=== PATIENT | male | born 1995 | race Caucasian/White ===

== ENCOUNTER 2017-02-28 22:41 | Emergency (ER) | payer OTHER ==
[~2017-02-28] VITALS: Ht 167.6 cm; Wt 72.6 kg
[~2017-02-28 22:41] MED LIST: CLON2TAB PO; TEMA30CA5 PO
[2017-02-28] MEDS ORDERED: VANCOMYCIN IV 1,000 MG in IV DEXTROSE 5% 250 ML IV ONE (23:00)
[2017-02-28] MEDS ORDERED: HYDROMORPHONE 1 MG/1 ML DISP.SYRIN IV ONE (23:00)
[2017-02-28] MEDS ORDERED: PIPERACILLIN SODIUM/TAZOBACTAM 3.375 G in IV DEXTROSE 5% 50 ML IV ONE (23:00)
[2017-02-28] MEDS ORDERED: IV NORMAL SALINE 1000 ML BAG IV ONE (23:00)
[2017-02-28] MEDS ORDERED: ONDANSETRON 4 MG/2 ML VIAL IV ONE (23:00)
[2017-02-28] MEDS ORDERED: HYDROMORPHONE 2 MG/1 ML DISP.SYRIN ONE (23:22)
[2017-02-28] MEDS ORDERED: ONDANSETRON 4 MG/2 ML VIAL ONE (23:23)
--- NOTE | 2017-02-28 23:23 | NUR ---
Pt biba for redness, swelling and pain to L wrist s/p self injection of crushed medication. Pt placed on monitor ST. Pt admits to using heroin earlier today. Pt seen by MD. ANGELLA huntley, pt medicated for discomfort, will monitor for effects of medication. Lab at bedside for draw.
--- NOTE | 2017-02-28 23:25 | NUR ---
CALLED [facility] [phone] SPOKE WITH ALEXUS.ONLY BEDAS AVAILABLE ARE OB AND PEDS.
[2017-02-28] MEDS ORDERED: PIPERACILLIN/TAZOBACTAM/D5W 50 ML IV ONE (23:27)
--- NOTE | 2017-02-28 23:30 | NUR ---
CALLED [facility] [phone] WITH МАРИНА IN ER NO ORTHO HAND SURGEON AVAILABLE
--- NOTE | 2017-02-28 23:40 | NUR ---
ABT infusion started, will monitor for any adverse reactions.
--- NOTE | 2017-02-28 23:50 | NUR ---
CALLED [facility] [phone] SPOKE WITH ER CHARGE NURSE NEAL.SHE TO SPEAK TO ER DR AND CALL BACK
[2017-02-28 23:54] LABS: BASOPHILS # (AUTO) 0.1 K/uL (0.0-8.0); BASOPHILS % (AUTO) 0.8 % (0.0-2.0); EOSINOPHILS % (AUTO) 0.1 % (0.0-7.0); HEMATOCRIT 41.2 % (40-50); HEMOGLOBIN 13.9 G/DL (14.0-18.0); LYMPHOCYTES # (AUTO) 2.4 K/UL (0.8-4.8); LYMPHOCYTES % (AUTO) 16.8 % (20.5-51.5); MEAN CORPUSCULAR HEMOGLOBIN 29.3 UUG (27.0-31.0); MEAN CORPUSCULAR HGB CONC 34 g/dL (32.0-37.0); MEAN CORPUSCULAR VOLUME 86.9 FL (82.0-92.0); NEUTROPHILS # (AUTO) 10.7 K/UL (1.8-8.9); NEUTROPHILS % (AUTO) 75.3 % (38.5-71.5); PLATELET COUNT (AUTO) 336 K/UL (150-450); RED BLOOD CELL COUNT(AUTO) 4.74 MIL/UL (4.7-6.1); WHITE BLOOD COUNT (AUTO) 14.2 K/UL (4.0-11.2)
[2017-03-01 00:09] LABS: BILIRUBIN,DIRECT 0.1 mg/dL (0.0-0.2); BILIRUBIN,TOTAL 0.3 mg/dL (0.2-1.0); CREATININE 1.1 mg/dL (0.6-1.3); POTASSIUM 3.5 mmol/L (3.5-5.1); TOTAL PROTEIN, SERUM 8.5 g/dL (6.4-8.2)
--- NOTE | 2017-03-01 00:10 | NUR ---
NEAL,CHARGE NURSE FROM [facility] CALLED.WE TO FAX ALL INFO TO [facility](TRANSFER PERSON).THEY WILL NOTIFY US OF DECISION.
[2017-03-01 00:15] LABS: ETHANOL < 3 MG/DL (0-0)
[2017-03-01 00:20] LABS: *AMPHETAMINE, URINE POSITIVE (NEGATIVE); *BARBITURATE, URINE NEGATIVE (NEGATIVE); *CANNABINOID, URINE NEGATIVE (NEGATIVE); *COCCAINE, URINE NEGATIVE (NEGATIVE); *OPIATE, URINE POSITIVE (NEGATIVE); *PHENCYCLIDINE SCREEN,URINE NEGATIVE (NEGATIVE)
[2017-03-01] MEDS ORDERED: VANCOMYCIN IV 200 ML ONE (00:36)
--- NOTE | 2017-03-01 00:45 | NUR ---
ALL INFO FAXED TO [facility]
--- NOTE | 2017-03-01 01:30 | NUR ---
PATIENT DEVELOPE REDNESS ON CHEST AREA AND LOWER EXTERMITY AFTER VANCO WAS INFUSED. DR CARABALLO MADE AWARE AND ORDERS RECIEVED AND CARRIED OUT
[2017-03-01] MEDS ORDERED: diphenhydrAMINE 50 MG/1 ML VIAL IV ONE ×2 (01:45→02:15)
[2017-03-01] MEDS ORDERED: diphenhydrAMINE 50 MG/1 ML VIAL ONE ×2 (02:09→02:28)
[2017-03-01] MEDS ORDERED: HYDROMORPHONE 1 MG/1 ML DISP.SYRIN IV ONE (03:30)
--- NOTE | 2017-03-01 03:41 | NUR ---
Called for possible transfer to [facility] and they are at capacity. Called [facility] and they dont have hand speciality.
--- NOTE | 2017-03-01 03:51 | NUR ---
Pt medicated for continued pain, will monitor for effects of medicaiton. Pt resting in position of comfort for self. Called [facility], awaiting call back.
[2017-03-01] MEDS ORDERED: HYDROMORPHONE 2 MG/1 ML DISP.SYRIN ONE (03:56)
--- NOTE | 2017-03-01 04:19 | NUR ---
[facility] unable to accept pt at this time
[2017-03-01] MEDS ORDERED: OLANZAPINE 5 MG TABLET PO ONE (05:15)
[2017-03-01] MEDS ORDERED: PIPERACILLIN SODIUM/TAZOBACTAM 3.375 G in IV DEXTROSE 5% 50 ML IV ONE (05:15)
--- NOTE | 2017-03-01 05:25 | NUR ---
Called [facility], awaiting call back.
--- NOTE | 2017-03-01 05:30 | NUR ---
Dr. Noel speaking with Dr. Cuenca hand specialist for possible transfer to [facility]
[2017-03-01] MEDS ORDERED: PIPERACILLIN/TAZOBACTAM/D5W 50 ML IV ONE (05:42)
[2017-03-01] MEDS ORDERED: OLANZAPINE 5 MG TABLET ONE (05:42)
--- NOTE | 2017-03-01 05:58 | NUR ---
Pt accepted by Dr. Treviño with Dr. Cuenca for hand specialist consult. Pt to be transferred to [facility] ER. Report to be called to [phone]
--- NOTE | 2017-03-01 05:59 | NUR ---
Initial IV infiltrated. IV dc'd, catheter intact. drsg applied. New IV established, 20g L AC. ABT infusion started, will monitor for any adverse reactions. Pt refused zyprexa. Dr. Noel notified.
--- NOTE | 2017-03-01 07:09 | NUR ---
[facility] transport at bedside. Report called to [facility] spoke with JEFFY Burk.
== END 2017-03-01 07:26 | disposition short-term general hospital (02) ==
LOC: ER 22:41
DX: L03.114 Cellulitis of left upper limb (principal); F15.129 Other stimulant abuse with intoxication, unspecified; F32.9 Major depressive disorder, single episode, unspecified; F41.9 Anxiety disorder, unspecified; F17.200 Nicotine dependence, unspecified, uncomplicated
CPT/HCPCS: 36415; 73130; 80048; 80076; 80307; 83605; 83880; 84484; 85025; 85730; 87040 ×2; 93005; 96365 ×2; 96367; 96375; 96376; 99285; A4663; G0480; J1170 ×2; J1200 ×2; J2405; J2543 ×2; J3370; J7030; 70030-TC

== ENCOUNTER 2017-09-08 18:42 | Inpatient (IN) | payer OTHER ==
[~2017-09-08] VITALS: Ht 170.2 cm; Wt 63.5 kg
[2017-09-08] VITALS: BP 133/87
[2017-09-08] MEDS ORDERED: TEMA30CA PO (19:40)
[2017-09-08] MEDS ORDERED: ONDANSETRON 4 MG/2 ML VIAL IM PRN (19:45)
[2017-09-08] MEDS ORDERED: DICYCLOMINE HCL 20 MG TABLET PO PRN (19:45)
[2017-09-08] MEDS ORDERED: DIAZEPAM 10 MG TABLET PO PRN (19:45)
[2017-09-08] MEDS ORDERED: MIRALAX 17 GM POWD.PACK PO PRN (19:45)
[2017-09-08] MEDS ORDERED: LOPERAMIDE HCL 2 MG CAPSULE PO PRN ×2 (19:45)
[2017-09-08] MEDS ORDERED: MAGNESIUM HYDROXIDE 30 ML LIQUID UDC PO PRN (19:45)
[2017-09-08] MEDS ORDERED: DIAZEPAM 5 MG TABLET PO PRN (19:45)
[2017-09-08] MEDS ORDERED: LORAZEPAM 2 MG/1 ML VIAL IM PRN (19:45)
[2017-09-08 20:00] VITALS: BP 112/67
--- NOTE | 2017-09-08 20:15 | NUR ---
ADMISSION NOTE CIWA: 13, COWS:12 Pt arrived ambulatory from [facility] to the third floor accompanied by a BUCKRAM SEWER at 1925. Pt is a 22 year old male admitted on 09/08/17 for Benzodiazepine and Opiate withdrawal. Pt is full code with NKA. Pt reports PMHx of anxiety, depression,insomnia, HTN, seizure ( 1 year ago), dystonia (1 week ago) and inhalant induced frontal lobe brain injury at 14 years old. He denies having a PCP. He reports he has been to detox before but is unable to recall when and where. His longest sobriety was for 1 year in 2014. He reports taking home medications of Clonidine 0.3 mg TID, Adderall 30 mg, Klonopin 30 mg, Temazepam 30 mg, and Ambien of unknown dose. Medications have been reconciled. He describes his current use as: 1. Klonopin 90 mg PO daily for 3 months. Last dose: 90 mg on 09/07/17 2. Temazepam 180 mg PO daily for 3 months. Last dose: 180 mg on 09/07/17 3. Oxycodone 240 mg PO daily for 3 months. Last dose: 240 mg on 09/07/17 4. Fentanyl based synthetic opiates daily for 3months. Last dose: 09/07/17 5. Adderall 30 mg daily for 3 months. Last dose: 30 mg on 09/07/17 6. Bath Salts ( smoking) intermittently for 12 years. Last dose: 09/07/17 7. Inhalants (Ether) intermittently for 12 years. Last dose: 09/07/17 He describes his withdrawal symptoms as: "heart racing, sweats, body aches, insomnia, anxiety." Upon assessment, pt is alert and oriented x4, speech is clear and audible. Pt noted to be disheveled and unkempt. Pt noted to be anxious, agitated, restless, depressed, angry, and labile. Pt is fidgety during interview with racing thoughts. He is noted with a flat affect and piloerection on bilateral arms. Heart rate regular. Denies chest pain or SOB. PERRLA, breathing is even and unlabored, lung sounds clear. Abdomen is soft and non-distended. Bowel sounds present in all quadrants, last BM 09/06/17. Pt reports that BM is regular. Pt's skin is warm, dry and intact. MD aware of pt's admission. Pt oriented to room and unit. Safety measures in place. Will continue to monitor. Addendum: 09/09/17 at 0139 by FREDDIE SCHULER RN Pt also reports he was at [facility] one week ago for dystonia.
[2017-09-08 20:17] LABS: *AMPHETAMINE, URINE NEGATIVE (NEGATIVE); *BARBITURATE, URINE NEGATIVE (NEGATIVE); *CANNABINOID, URINE POSITIVE (NEGATIVE); *COCCAINE, URINE NEGATIVE (NEGATIVE); *OPIATE, URINE NEGATIVE (NEGATIVE); *PHENCYCLIDINE SCREEN,URINE NEGATIVE (NEGATIVE)
[2017-09-08] MEDS: BUPRENORPHINE HCL 2 MG TAB.SUBL SL PRN (20:37)
[2017-09-08] MEDS: DIAZEPAM 10 MG TABLET PO PRN (20:38)
--- NOTE | 2017-09-08 20:38 | NUR ---
PRN VALIUM/SUBUTEX Pt noted with piloerection, anxiety, agitation, restlessness, and body aches. COWS:12, CIWA:13. PRN Valium 10 mg and PRN Subutex 4 mg administered as ordered. Breathing even and unlabored. Safety measures in place. Will monitor effectiveness.
[2017-09-08] MEDS ORDERED: DIAZEPAM 10 MG TABLET PO ONE (21:30)
--- NOTE | 2017-09-08 21:38 | NUR ---
PRN VALIUM/SUBUTEX REASSESSMENT PRN Subutex effective. Pt reports decrease in body aches. PRN Valium ineffective. Pt still complains of anxiety, agitation and restlessness. Will continue to monitor. Addendum: 09/09/17 at 0125 by FREDDIE SCHULER RN COWS:11, CIWA:11
--- NOTE | 2017-09-08 21:40 | NUR ---
ONE TIME VALIUM Pt noted with anxiety, agitation, irritability, and restlessness. Pt noted to be pacing in and out of room. MD notified with new order for One time Valium 10. Medication administered as ordered. Will monitor effectiveness.
[2017-09-08 21:51] LABS: BASOPHILS # (AUTO) 0.1 K/uL (0.0-8.0); BASOPHILS % (AUTO) 0.6 % (0.0-2.0); EOSINOPHILS # (AUTO) 0.1 K/uL (0.0-0.7); EOSINOPHILS % (AUTO) 1.2 % (0.0-7.0); LYMPHOCYTES # (AUTO) 3.6 K/uL (20.0-40.0); LYMPHOCYTES % (AUTO) 42.4 % (20.5-51.5); MEAN CORPUSCULAR HGB CONC 34 g/dL (32.5-36.3); MEAN CORPUSCULAR VOLUME 88.1 fL (73.0-96.2); MONOCYTES # (AUTO) 0.8 K/uL (2.0-10.0); NEUTROPHILS # (AUTO) 3.9 K/uL (1.8-8.9); NEUTROPHILS % (AUTO) 45.8 % (38.5-71.5); PLATELET COUNT (AUTO) 270 K/uL (152-348); RED BLOOD CELL COUNT(AUTO) 4.65 MIL/uL (4.06-5.63); WHITE BLOOD COUNT (AUTO) 8.5 K/uL (3.6-10.2)
[2017-09-08 22:01] LABS: ETHANOL < 3 MG/DL (0-0)
[2017-09-08 22:06] LABS: ALANINE AMINOTRANSFERASE 21 U/L (16-63); ALKALINE PHOSPHATASE 58 U/L (50-136); AMYLASE 50 U/L (25-115); ASPARTATE AMINOTRANSFERASE 13 U/L (15-37); BILIRUBIN,TOTAL 0.3 mg/dL (0.2-1.0); CARBON DIOXIDE 25 mmol/L (21-32); CHLORIDE 104 mmol/L (98-107); CREATININE 1.1 mg/dL (0.6-1.3); GLUCOSE 101 mg/dL (74-106); LIPASE 145 U/L (73-393); MAGNESIUM 2.2 mg/dL (1.8-2.4); POTASSIUM 3.7 mmol/L (3.5-5.1); TOTAL PROTEIN, SERUM 7.2 g/dL (6.4-8.2); UREA NITROGEN, BLOOD 12 mg/dL (7-18)
[2017-09-08 22:18] LABS: THYROID STIMULATING HORMONE 0.042 mIU/mL (0.358-3.740)
--- NOTE | 2017-09-08 22:40 | NUR ---
ONE TIME VALIUM REASSESSMENT One time medication ineffective. Pt still complains of anxiety/agitation. Breathing is even and unlabored, safety measures in place. Will monitor.
[2017-09-08 22:58] VITALS: BP 141/92
[2017-09-08] MEDS: CLONIDINE HCL 0.1 MG TABLET PO PRN (22:58)
--- NOTE | 2017-09-08 22:58 | NUR ---
PRN CLONIDINE Pt noted to be anxious, agitated, aggressive, restless and irritable. Pt with increased BP of 141/92, HR:92. PRN clonidine administered as ordered. Will monitor effectiveness.
[2017-09-08] MEDS ORDERED: CLON0.3T PO (23:42)
[2017-09-08] MEDS ORDERED: ZOLP5TAB2 PO (23:42)
[2017-09-08] MEDS ORDERED: AMPH30CA3 PO (23:42)
[2017-09-08] MEDS ORDERED: CELE50CA PO (23:42)
--- NOTE | 2017-09-08 23:58 | NUR ---
PRN CLONIDINE REASSESSMENT PRN medication effective. BP: 133/87, HR:90. Breathing is even and unlabored, safety measures in place. Will monitor.
[2017-09-09] VITALS: BP 133/87
[2017-09-09 04:00] VITALS: BP 119/76
--- NOTE | 2017-09-09 06:59 | NUR ---
END OF SHIFT Pt is a 22 year old male. Pt is alert and oriented x4. He had complaints of anxiety, agitation, restlessness, sweats and chills during the shift. He received PRN Valium, Subutex and Clonidine. He slept a total of 7 hrs, Intake: 1,680mL, Void: x2, BM:0, COWS: 11, CIWA:11. Breathing is even and unlabored. Safety measures in place. Endorsed to AM shift.
[2017-09-09] MEDS: DIAZEPAM 10 MG TABLET PO PRN (08:14)
[2017-09-09] MEDS: BUPRENORPHINE HCL 2 MG TAB.SUBL SL PRN ×3 (08:15→17:01)
[2017-09-09] MEDS: CLONIDINE HCL 0.1 MG TABLET PO PRN ×2 (08:15→17:00)
[2017-09-09] MEDS: MULTIVITAMINS,THERAPEUTIC TABLET PO SCH (08:15)
--- NOTE | 2017-09-09 08:15 | NUR ---
PRN MEDS SUBUTEX 4MG SL AND VALIUM 10MG PO GIVEN FOR COWS 14 CIWA 12 ZOFRAN 4MG IM GIVEN FOR NAUSEA AND CLONIDINE 0.1MG PO GIVEN FOR INCREASED BP 137/85 WILL REASSESS
[2017-09-09] MEDS ORDERED: TUBERCULIN,PURIF.PROT.DERIV. 5 TU/0.1 ML TEST ID ONE (09:00)
[2017-09-09 09:12] VITALS: BP 137/85
--- NOTE | 2017-09-09 09:15 | NUR ---
PRN REASSESS SUBUTEX 4 MG SL EFFECTIVE COWS NOW 9 ( WAS 14) VALIUM 10MG PO EFFECTIVE CIWA NOW 10 ( WAS 12 ) ZOFRAN 4MG IM EFFECTIVE, PT STATES NAUSEA IS LESS BUT BECAUSE OF HIS DYSTONIA HE IS ALWAYS A LITTLE NAUSEOUS CLONIDINE 0.1 MG PO EFFECTIVE, BP 130/72 AND ANXIETY HAS DECREASED WILL CONTINUE TO MONITOR
[2017-09-09 12:00] VITALS: BP 118/71
[2017-09-09] MEDS: DIAZEPAM 10 MG TABLET PO SCH ×3 (12:32→20:17)
--- NOTE | 2017-09-09 12:32 | NUR ---
PRN SUBUTEX 4MG SUBUTEX SL GIVEN FOR COWS 12 WILL REASSESS
--- NOTE | 2017-09-09 13:32 | NUR ---
REASSESS PRN COWS 9 AFTER 4MG SUBUTEX SL ( WAS 12 ) CONTINUE TO MONITOR.
[2017-09-09 16:00] VITALS: BP 125/82
--- NOTE | 2017-09-09 17:00 | NUR ---
PRN MEDS SUBUTEX 4MG SL GIVEN FOR COWS 14 CLONIDINE 0.1MG PO AND BENADRYL 50MG PO GIVEN FOR ITCHING WILL REASSESS
[2017-09-09] MEDS: diphenhydrAMINE 50 MG CAPSULE PO PRN ×2 (17:07→21:50)
--- NOTE | 2017-09-09 18:00 | NUR ---
PRN REASSESS SUBUTEX EFFECTIVE , COWS NOW 10 ( WAS 14 ) CIWA 9 BENADRYL EFFECTIVE WITH ITCHING CONTINUE TO MONITOR
--- NOTE | 2017-09-09 18:44 | NUR ---
END OF SHIFT : PATIENT IS A 22 YR OLD MALE ADMITTED TO [facility] ON 09/08/17 FOR WITHDRAWAL FROM OPIATES AND BENZODIAZEPINES. PATIENT HAS BEEN RESTLESS AND IRRITABLE MOST OF THE DAY, HE IS UNSHAVEN AND DISHEVELED, THE BED AND FLOOR COVERED IN FOOD AND WRAPPERS. PATIENT HAS BEEN ON PRN'S THIS SHIFT AND REQUIRED : SUBUTEX 4MG SL X 3, ZOFRAN, CLONIDINE, VALIUM AND BENADRYL. VALIUM TAPER STARTED TODAY AND TOLERATED WELL. PATIENT HAD A FLUID INTAKE OF 2300ML, 5 VOIDS AND 2 BM. LAST COWS 10 AND CIWA 9 @ 1800. SAFETY MEASURES IN PLACE, BED WITH PADDED SIDE RAILS UP X 2. CONTINUE MD PLAN OF CARE.
--- NOTE | 2017-09-09 19:30 | NUR ---
START OF SHIFT Received 22 year old male patient. Pt is alert and oriented x4 and noted to be disheveled with garbage around room. Pt is anxious, irritable, agitated, and restless with complaints of nausea. Per endorsement, he received PRN Zofran, Subutex, Clonidine and Valium. Breathing is even and unlabored. Safety measures in place. Will continue to monitor.
[2017-09-09 20:00] VITALS: BP 108/66
[2017-09-09] MEDS: ONDANSETRON ODT 4 MG TAB.RAPDIS SL PRN (20:18)
--- NOTE | 2017-09-09 20:18 | NUR ---
PRN ZOFRAN Pt complains of nausea with no episode of vomiting. PRN Zofran SL administered as ordered. Breathing is even and unlabored. Safety measures in place. Will continue to monitor.
--- NOTE | 2017-09-09 21:18 | NUR ---
PRN ZOFRAN REASSESSMENT PRN medication effective. Pt denies nausea and reports he feels better. Breathing is even and unlabored. Safety measures in place. Will monitor.
--- NOTE | 2017-09-09 21:50 | NUR ---
PRN BENADRYL Pt complains of insomnia and reports he wants to try and go to sleep. PRN Benadryl administered as ordered. Will monitor effectiveness.
--- NOTE | 2017-09-09 22:50 | NUR ---
PRN BENADRYL REASSESSMENT PRN medication effective. Pt is lying in bed with eyes closed noted to be asleep. Breathing is even and unlabored, safety measures in place. Will continue to monitor.
--- NOTE | 2017-09-10 | NUR ---
VITALS REFUSED, COWS/CIWA DEFERRED 0000 vitals refused at beginning of shift. Pt reports difficulty fall asleep and did not want to be woken up. COWS/CIWA deferred d/t pt lying in bed with eyes closed and is asleep. Breathing is even and unlabored. Safety measures in place. Will continue to monitor.
--- NOTE | 2017-09-10 04:00 | NUR ---
VITALS REFUSED, COWS/CIWA DEFERRED 0400 vitals refused at beginning of shift. Pt reports difficulty fall asleep and did not want to be woken up. COWS/CIWA deferred d/t pt lying in bed with eyes closed and is asleep. Breathing is even and unlabored. Safety measures in place. Will continue to monitor.
[2017-09-10 05:00] VITALS: BP 115/75
--- NOTE | 2017-09-10 07:05 | NUR ---
END OF SHIFT Pt is a 22 year old male patient. Pt remains alert and oriented x4. He was noted with anxiety, agitation, irritability restlessness and nausea during the shift. He received PRN Zofran and Benadryl. He was able to sleep for 4 hrs on and off. Intake: 1,396mL, Void: x3, BM:1, COWS:8, CIWA:7. Breathing is even and unlabored. Safety measures in place. Will endorse to AM shift.
--- NOTE | 2017-09-10 07:30 | NUR ---
START OF SHIFT Pt is a 22 yr old male, AA&Ox4. Pt was admitted on 09/08/17 for Benzo/opiate withdrawal and is on 4 day Valium and 4 day Subutex taper as ordered starting today. Received report from shift production associate nurse. Pt received Zofran PRN and Benadryl PRN. Medication was mildly effective. Pt slept for 4 hours intermittently. Last COWS score was 8 and CIWA score was 7. Pt is c/o nausea, muscle aches, abdominal cramping, cold/hot chills and sensitivity to light. Skin is intact, warm and moist to touch. Fine tremors are seen on bilateral arms. Encouraged increase fluid intake for hydration. Safety precaution observed. Call light is within reach. Will continue to f/u with Subutex and Valium as ordered.
[2017-09-10 08:00] VITALS: BP 128/80
[2017-09-10 08:08] LABS: HEPATITIS B SURFACE AG Negative (Negative)
[2017-09-10] MEDS: METHOCARBAMOL 750 MG TABLET PO PRN ×2 (08:26→16:43)
[2017-09-10] MEDS: ONDANSETRON ODT 4 MG TAB.RAPDIS SL PRN (08:26)
[2017-09-10] MEDS: DIAZEPAM 10 MG TABLET PO SCH ×3 (08:27→21:00)
[2017-09-10] MEDS: MULTIVITAMINS,THERAPEUTIC TABLET PO SCH (08:27)
[2017-09-10] MEDS: BUPRENORPHINE HCL 2 MG TAB.SUBL SL SCH ×3 (08:28→20:53)
--- NOTE | 2017-09-10 08:31 | NUR ---
PRN GIVEN Pt c/o abdominal cramping, nausea and muscle aching /10. Bentyl 20mg PO PRN, Zofran 4mg SL PRN, and Robaxin 750mg PO PRN was given as ordered. Pt was encouraged icnrease fluid intake for hydration. Will continue to monitor.
--- NOTE | 2017-09-10 08:34 | NUR ---
MEDICATION REFUSED Pt refused to take Neurontin 300mg PO as scheduled at 0900. Pt states "It doesn't do anything for me" Pt was educated on the importance of medication regimen. Pt continues to refuse. Will continue to monitor.
[2017-09-10] MEDS ORDERED: 4 DAY TAPER BUPRENORPHINE -SERENITY PROTOCOL SL PRN (09:00)
[2017-09-10] MEDS ORDERED: GABAPENTIN 300 MG CAPSULE PO SCH ×2 (09:00→21:00)
[2017-09-10] MEDS ORDERED: HYDROXYZINE PAMOATE 25 MG CAPSULE PO PRN (09:00)
--- NOTE | 2017-09-10 09:30 | NUR ---
PRN RE-ASSESSMENT Robaxin 750mg PO PRN, Bentyl 20mg PO PRN and Zofran 4mg SL PRN was effective. Pt denies any nausea and abdominal cramping at this time. Pt continues to c/o muscle aches but pain level subsided from 01/19 to 10/20. Pt was encouraged increase fluid intake for hydration. Will continue to monitor.
--- NOTE | 2017-09-10 10:50 | NUR ---
Therapist prompted client about group times. Client stated he would attend all group times.
[2017-09-10 12:00] VITALS: BP 158/96
[2017-09-10] MEDS ORDERED: PATIENT MAY USE OWN MED- MD OK PO PRN (12:30)
--- NOTE | 2017-09-10 14:17 | NUR ---
MEDICATION REFUSED Pt refused to take Valium 10mg as scheduled. Pt states, "I rather not take it because it's such a small dose" Pt was explained the risks and benefits of medication regimen. Pt needs further education on disease process and medication regimen. Pt continues to refuse Valium as ordered. Will continue to monitor.
[2017-09-10] MEDS: CLONIDINE HCL 0.3 MG TABLET PO SCH ×2 (14:50→21:34)
[2017-09-10] MEDS: IBUPROFEN 400 MG TABLET PO PRN ×2 (15:37→20:53)
--- NOTE | 2017-09-10 15:41 | NUR ---
PRN GIVEN Pt c/o generalized body aches 02/19. Motrin 400mg PO PRN was given as ordered. Medication eduardo well. Encouraged increase fluid intake. Will continue to monitor.
[2017-09-10 16:00] VITALS: BP 127/100
--- NOTE | 2017-09-10 16:41 | NUR ---
PRN RE-ASSESSMENT Motrin PRN was effective. Pt's pain level subsided to 5/10. Pt was encouraged increase fluid intake for hydration. Will continue to monitor.
--- NOTE | 2017-09-10 18:51 | NUR ---
END OF SHIFT Pt is a 22 yr old male, AA&Ox4. Pt was admitted on 09/08/17 for Opiate/Benzo withdrawal and is on 4 day Valium and 4 day Subutex taper as ordered. Pt has been observed with anxiety and overly concern over medications. Pt was observed wtih fine tremors on bilateral hands. Pt c/o nausea x1 in the morning. Zofran 4mg SL PRN was given and was effective. Pt also c/o generalized body aches. Robaxin 750mg PO PRN x2 and Motrin 400mg PO PRN was given during the day. Pt received Bentyl 20mg PO PRN for abdominal cramping. Medication was effective. Pt continues to c/o muscle pain, facial grimacing and rubbing affected area was observed. Pt was encouraged increase fluid intake. Pt did attend group therapy. Pt refused to take Valium 10mg as ordered at 1500 and refused to take Gabapentin 300mg as scheduled in the morning. Dr. Guzmán was made aware with new order to discontinue Gabapentin. Last COWS score was 13 and CIWA score was 12 at 1600. Safety precautions observed. Call light is within reach.
--- NOTE | 2017-09-10 19:15 | NUR ---
Start of Shift Note: Endorsement received from day shift nurse. Received patient alert & oriented to name, place and situation. Patient appears with an anxious/irritable mood, has a flat affect and noted with flushed face. Room observed to be messy with opened food and trash noted on the flood and on the table, unfolded clothes on the chair and bed. Pt presented with sweating, chills, restlessness, reports 8/10 backache, stuffy nose, moderate headache and noted with fine tremors. Patient is on a Subutex and Valium taper, pt has been refusing Valium during the day. Pt has been tolerating Subutex well with no adverse reactions noted. Last COWS 13 CIWA 12. Pt received PRN Zofran, Bentyl, Robaxin x2, & Motrin during the day. Pt educated current plan of care for the night and medication regimen. Safety measures in place. Will continue to monitor patient.
[2017-09-10 20:00] VITALS: BP 146/104
[2017-09-10] MEDS: MAG HYDROX/AL HYDROX/SIMETH 30 ML LIQUID UDC PO PRN (20:53)
[2017-09-10] MEDS: ACETAMINOPHEN 325 MG TABLET PO PRN (20:53)
--- NOTE | 2017-09-10 20:53 | NUR ---
PRN Maalox/Motrin/Tylenol Patient complained of heartburn, generalized bodyaches and moderate headache. Pt appears restless with facial grimacing noted. PRN Maalox/Motrin /Tylenol administered as ordered. Will monitor for effectiveness of medication.
--- NOTE | 2017-09-10 21:00 | NUR ---
Medication refusal Patient refused scheduled Valium 10mg. Pt stated that "It doesn't do anything for me. Explained to patient benefits of medication and risk of having seizure d/t withdrawal but pt still refused. Safety measures in place. Will continue to monitor patient.
--- NOTE | 2017-09-10 21:53 | NUR ---
PRN Reassessment PRN medication effective. Patient verbalized decreased in body aches from 8/10 to 4/10. Pt also reported that heartburn and headache subsided after medication administration. Will continue to monitor patient.
[2017-09-11] MEDS: METHOCARBAMOL 750 MG TABLET PO PRN ×3 (01:43→21:32)
--- NOTE | 2017-09-11 01:43 | NUR ---
PRN Robaxin Patient reports 5/10 generalized body aches. Patient stated that he can not sleep and reports anxiety & restlessness. Offered Vistaril or Benadryl but patient refused. Explained benefits of medication but still refused. PRN Robaxin administered as ordered. Will continue to monitor patient.
[2017-09-11 01:49] VITALS: BP 109/83
--- NOTE | 2017-09-11 07:33 | NUR ---
End of Shift Note: Patient remains alert & oriented x4. Patient continues on a Subutex and Valium taper. Pt tolerated taper well. Pt refused scheduled Valium at 2100, per patient it doesn't do anything. Pt presented with moist/clammy skin, anxious/irritable mood, moderate headache, sweating, chills, generalized body aches, light auditory sensitivity & fine tremors during my shift. Pt received PRN Maalox, Motrin, Tylenol, & Robaxin and were effective. Last COWS CIWA 11. Closely monitored vitals signs and noted WNL. Pt stayed in her room most the night & slept for a total of 3 hours. Fluid intake: 855ml. Voided 3x with 1x bowel movement during my shift. Patient was encourage to increase fluid intake as tolerated. All needs attended. Safety measures in place. Will endorse to day shift nurse.
--- NOTE | 2017-09-11 07:34 | NUR ---
Start of Shift Relief Docking Master received report on 22 year old male admitted to [facility] on 09/08/17 for medical management of Opiate, Benzodiazepine and poly-substance withdrawal. Pt endorses NKA, full code and eats a regular diet. Pt reports a PMH of anxiety, depression, HTN, seizures and a brain injury induced by inhalant use. Pt currently on Subutex and Valium taper, although pt has been refusing Valium and Neurontin, per report. Pts last COWS 10 and CIWA 11, recorded at 0400, per report. Pt was administered PRN Maalox, Motrin, Tylenol and Robaxin on the NOC. Relief Docking Master encounters pt in his room resting with eyes closed. Even and unlabored respirations with rise and fall of chest noted. Bed in low position with wheels locked and side rail up x2. Will continue to monitor, support and encourage according to plan of care.
[2017-09-11 08:52] VITALS: BP 117/72
[2017-09-11] MEDS ORDERED: BUPRENORPHINE HCL 2 MG TAB.SUBL SL SCH (09:00)
[2017-09-11] MEDS: DIAZEPAM 5 MG TABLET PO SCH ×4 (09:00→21:00)
[2017-09-11] MEDS: MULTIVITAMINS,THERAPEUTIC TABLET PO SCH (09:00)
[2017-09-11] MEDS: CLONIDINE HCL 0.3 MG TABLET PO SCH ×3 (09:53→21:32)
--- NOTE | 2017-09-11 09:53 | NUR ---
EDVIN Morocho Pt complain of pain and discomfort in the back. Pt has attempted non-pharmacological needs with no effectiveness noted. Pt was administered medication per MD order and pt tolerated well. Will continue to monitor, support and encourage according to plan of care.
--- NOTE | 2017-09-11 10:00 | NUR ---
Medication Refusal Pt states he is concerned about getting addicting and is not experiencing severe withdrawal symptoms. Laborer Tree Tapping educated pt on benefits and indication of prescribed medications. Educated on importance of following MD orders when medically detoxing. Laborer Tree Tapping educated pt on fact pt was having minor withdrawal symptoms due to the administration of medication. Pt continues to refuse his Valium and Subutex. MD notified. Will continue to monitor, support and encourage according to plan of care.
--- NOTE | 2017-09-11 10:53 | NUR ---
EDVIN Morocho Pt endorses some relief, " doesn't hurt as much, not as tight, but it still hurts a bit." Will continue to monitor, support and encourage according to plan of care.
--- NOTE | 2017-09-11 11:15 | NUR ---
OT Order Subutex Pt approaches database report writer and states, " I am ready for thast Subutex now." Hostess Host educates pt on need for OT order due to pt's refusal this am. Pt states he is starting to feel symptoms of Withdrawal and wants his Subutex. MD notified. OT order received. Will continue to monitor, support and encourage according to plan of care.
[2017-09-11] MEDS ORDERED: BUPRENORPHINE HCL 2 MG TAB.SUBL SL ONE (11:30)
--- NOTE | 2017-09-11 11:53 | NUR ---
PRN Re-Assessment Pt states he feels a bit better. Will continue to monitor, support and encourage according to plan of care. Addendum: 09/11/17 at 1434 by DARREN MIGUEL RN Disregard ... wrong patient
[2017-09-11 12:15] VITALS: BP 113/75
--- NOTE | 2017-09-11 12:47 | NUR ---
Therapist encouraged client to go to groups and share with others, which would benefit with reducing anxiety and social isolation.
--- NOTE | 2017-09-11 13:04 | NUR ---
Valium Refusal Pt continues to refuse Valium. Hyster Driver educated pt on importance of following MD orders while going thru a medical withdrawal management. Pt educated on indication of medications being administered to manage pt's withdrawal symptoms
[2017-09-11] MEDS: BUPRENORPHINE HCL 2 MG TAB.SUBL SL SCH ×2 (14:29→21:33)
--- NOTE | 2017-09-11 16:23 | NUR ---
Correct Entry - PRN Vistaril Pt complains of anxiety and requests something for his, " nerves and things." Skip Hoist Operator administers medication per MD order and pt tolerated well. Will continue to monitor, support and encourage according to plan of care
--- NOTE | 2017-09-11 16:23 | NUR ---
EDVIN Marley Pt endorses heartburn and indigestion. Pt requests something for heartburn. Pt administers medication per MD order, pt tolerated well. Will continue to monitor, support and encourage according to plan of care. Addendum: 09/11/17 at 1737 by DARREN MIGUEL RN DISREGARD _ WRONG MEDICATION
[2017-09-11 16:25] VITALS: BP 116/69
--- NOTE | 2017-09-11 17:00 | NUR ---
Valium Refusal Pt refuses scheduled dose of Valium, after thinking about taking his medication. Pt states, " no, I don't need that." Pt remains somatic and anxious. MD notified. CRN notified. Will continue to monitor, support and encourage according to plan of care.
[2017-09-11] MEDS: MAG HYDROX/AL HYDROX/SIMETH 30 ML LIQUID UDC PO PRN ×2 (17:20→21:59)
--- NOTE | 2017-09-11 17:20 | NUR ---
PRN Maalox Pt endorses heartburn and indigestion. Pt requests something for heartburn. Pt administers medication per MD order, pt tolerated well. Will continue to monitor, support and encourage according to plan of care.
--- NOTE | 2017-09-11 17:23 | NUR ---
PRN Marthataril Re-Assessment Pt remains anxious and nervous. Pt states he is still anxious. Career Developer educates pt on non-pharmacological interventions to help alleviate his anxiety.
--- NOTE | 2017-09-11 18:20 | NUR ---
PRN Re-Assessment - Jeff Pt endorses relief, stating, " yeah, talon is not on fire." Will continue to monitor, support and encourage according to plan of care.
--- NOTE | 2017-09-11 19:11 | NUR ---
End of Shift Chemist provided report on 22 year old male admitted to [facility] on 09/08/17 for medical management of Opiate, Benzodiazepine and poly-substance withdrawal. Pt endorses NKA, full code and eats a regular diet. Pt reports a PMH of anxiety, depression, HTN, seizures and a brain injury induced by inhalant use. Pt currently on Subutex and Valium taper. Pt is currently refusing Valium and refused first administered dose of Subutex, but received a OT dose at 1130. Pts last COWS 6 and CIWA 6, recorded at 1600. Pt was administered PRN Robaxin at 0953, Vistaril at 1623 and Maalox at 1720. PPD read, negative. Pt has been calm, A/O x4, makes needs known. Slow to respond and argumentative. Pt states he is afraid of addiction and does not want the medications. Chemist educated pt on indication and benefits of following MD orders. Patient refused the administration of scheduled Valium x3. Bed in low position with wheels locked and side rail up x2.
--- NOTE | 2017-09-11 19:15 | NUR ---
Start of Shift Note: Endorsement received from day shift nurse. Received patient alert & oriented x4. Patient appears with an anxious mood, has a flat affect and noted with flushed face. Room observed to be messy with and trash & open bottles noted throughout the room, unfolded clothes on the chair and bed. Pt presented with sweating, chills, restlessness, reports 6/10 backache, stuffy nose, nausea, moderate headache and noted with fine tremors. Patient is on a Subutex and Valium taper, pt still continue to refuse Valium during the day. Pt has been tolerating Subutex well with no adverse reactions noted. Last COWS 6 CIWA 6 during the day. Pt received PRN Maalox, Vistaril & Robaxin during the day. Pt educated current plan of care for the night and medication regimen. Safety measures in place. Will continue to monitor patient.
[2017-09-11 20:00] VITALS: BP 127/82
--- NOTE | 2017-09-11 21:00 | NUR ---
Medication refusal Patient refused scheduled Valium 5mg. Educated patient importance of medication to manage symptoms of withdrawal. Explained risk and benefits but still refused. Safety measures in place. Will continue to monitor patient.
--- NOTE | 2017-09-11 21:32 | NUR ---
PRN Robaxin patient complained of 6/10 back ache. Patient noted to be restless with facial grimacing noted. Non-pharmacological intervention provided but not effective. PRN Robaxin administered as ordered. Will monitor for effectiveness.
--- NOTE | 2017-09-11 21:59 | NUR ---
PRN Maalox Patient complained of indigestion and heartburn. PRN Maalox administered as ordered. Encourage pt to increase fluid intake. Will monitor for effectiveness of medication.
--- NOTE | 2017-09-11 22:32 | NUR ---
PRN Reassessment PRN medication effective. Patient verbalized decreased in backache from 6/10 to 3. Safety measures in place. Will continue to monitor patient.
--- NOTE | 2017-09-11 22:59 | NUR ---
PRN Maalox PRN mediacation effective. Pt verbalized relief from heartburn. Will continue to monitor patient.
[2017-09-11] MEDS: IBUPROFEN 400 MG TABLET PO PRN (23:36)
--- NOTE | 2017-09-11 23:36 | NUR ---
PRN Motrin Patient complains of backache.Patient appears restless in bed. PRN Motrin administered as ordered. Safety measures in place. Will continue to monitor patient.
[2017-09-12] VITALS: BP 132/78
--- NOTE | 2017-09-12 00:36 | NUR ---
PRN Reassessment Patient in bed and appear comfortable. No s/s of pain/discomfort noted. No shortness of breath noted. Safety measures in place. Will continue to monitor patient.
--- NOTE | 2017-09-12 04:00 | NUR ---
Vitals refused/COWS & CIWA deferred Pt requested not to be woken up for vitals at this time. Pt currently in bed with eyes close. No shortness of breath noted. Safety measures in place. Will continue to monitor patient.
--- NOTE | 2017-09-12 07:18 | NUR ---
End of Shift Note: Patient still asleep at this time. Patient remains alert & oriented x4. Patient continues on a Subutex taper and tolerating well. Pt is on Valium taper but has been refusing it. Pt remains to have a flat affect, presented with anxiety, agitation, chills, backache, nausea, & fine tremors. Pt received PRN Maalox for heartburn, Robaxin & Motrin for pain during my shift and were effective. Last COWS 9 CIWA 7. Closely monitored vitals signs and noted WNL. Pt slept for a total of 6 hours. Fluid intake: 550ml. Voided 3x with no bowel movement during my shift. Patient was encourage to increase fluid intake as tolerated. All needs attended. Safety measures in place. Will endorse to day shift nurse.
--- NOTE | 2017-09-12 07:32 | NUR ---
START OF SHIFT Pt is a 22 yr old male, AA&Ox4. Pt was admitted on 09/08/17 for Benzo/opiate withdrawal and is on 4 day Valium and 4 day Subutex taper as ordered. Received report from shift supervisor melting nurse. Pt received Maalox PRN and Motrin PRN and Robaxin PRN for pain mgt. Medication was effective. Pt slept for 6 hours. Last COWS score was 9 and CIWA score was 7. scene shifter nurse reported of Pt refusing Valium at 2100 as scheduled. Pt is currently in bed sleeping with respirations even and unlabored. Skin is intact, warm and moist to touch. Safety precaution observed. Call light is within reach. Will continue to monitor.
[2017-09-12 08:00] VITALS: BP 100/61
[2017-09-12] MEDS: MULTIVITAMINS,THERAPEUTIC TABLET PO SCH (09:00)
[2017-09-12] MEDS: DIAZEPAM 5 MG TABLET PO SCH ×3 (09:12→21:36)
[2017-09-12] MEDS: CLONIDINE HCL 0.3 MG TABLET PO SCH ×3 (09:13→21:36)
[2017-09-12] MEDS: BUPRENORPHINE HCL 2 MG TAB.SUBL SL SCH ×3 (09:13→21:36)
--- NOTE | 2017-09-12 09:15 | NUR ---
MEDICATION REFUSED Pt refused to take Multivitamin as scheduled at 0900. Pt was also stating of refusing Subutex and Valium as scheduled at 0900. Pt was educated on the importance of withdrawal medication and risks and benefits. Pt agreed to take Valium and Subutex as ordered but continued to refuse Multi-V. Medication was administered as ordered.
[2017-09-12] MEDS: METHOCARBAMOL 750 MG TABLET PO PRN (10:26)
[2017-09-12] MEDS: IBUPROFEN 400 MG TABLET PO PRN ×2 (10:26→17:20)
--- NOTE | 2017-09-12 10:26 | NUR ---
PRN GIVEN Pt c/o lower back pain 12/20. Facial grimacing is observed. Motrin 400mg PO PRN and Robaxin 750mg PO PRN was given as ordered. Medication eduardo well. Encouraged pt to drink plenty of fluids for hydration. Will continue to monitor.
--- NOTE | 2017-09-12 10:40 | NUR ---
Client prompted client to come to all groups/activities today to engage with others and not be isolated in his room. Therapist encouraged client to try to share his feeling/thoughts so he does not build up feelings/thoughts which may negatively impact him. Therapist encouraged client to also meet with therapist if they feel they cannot cope with going to group so they can have one/one therapy session to help process feelings/thoughts.
--- NOTE | 2017-09-12 11:30 | NUR ---
PRN RE-ASSESSMENT Motrin PRN and Robaxin PRN was mildly effective. Pt continues to c/o pain but is able to eduardo pain level. Encouraged increase fluids. Will continue to monitor.
[2017-09-12 12:00] VITALS: BP 130/104
[2017-09-12] MEDS: MAG HYDROX/AL HYDROX/SIMETH 30 ML LIQUID UDC PO PRN (12:35)
--- NOTE | 2017-09-12 12:35 | NUR ---
PRN GIVEN Pt c/o heartburn. Maalox 30ml PO PRN was given. Encouraged increase fluid intake. Will continue to monitor.
--- NOTE | 2017-09-12 13:50 | NUR ---
PRN RE-ASSESSMENT Maalox PO PRN was effective. Pt denies any heartburn Will continue to monitor.
[2017-09-12] MEDS: NICOTINE 14 MG/24HR PATCH TD SCH (14:55)
[2017-09-12 16:00] VITALS: BP 126/89
[2017-09-12] MEDS: CYCLOBENZAPRINE HCL 10 MG TABLET PO PRN ×2 (17:20→23:51)
--- NOTE | 2017-09-12 17:20 | NUR ---
Flexeril 10mg/Ibuprofen given: Patient complained of 8/10 pain to lower back. Non-pharmacological interventions provided but ineffective. Medicated patient with Flexeril and Ibuprofen as ordered. Will monitor for effectiveness.
--- NOTE | 2017-09-12 18:20 | NUR ---
PRN RE-ASSESSMENT Flexeril PO PRN and Motrin PO PRN was effective. Pt continues to c/o pain 4/10 but is able to eduardo pain level. Will continue to monitor.
--- NOTE | 2017-09-12 19:06 | NUR ---
END OF SHIFT Pt is a 22 yr old male, AA&Ox4. Pt was admitted on 09/08/17 for Benzo/opiate withdrawal and is on 4 day Valium and 4 day Subutex taper as ordered. Pt has been observed with anxiety and is observed to be overly concern over medication. Pt was educated multiple time by staff and therapist in medication regimen and plan of care. Pt continues to be very adamant about medication. Pt c/o lower back pain. Motrin 400mg PO PRN and Robaxin 750mg PO PRN was given as ordered, medication was mildly effective. Pt continues to c/o lower back pain and was given Flexeril PRN and Motrin PRN at 1720. Medication was effective. Pt also received Maalox 30ml PRN for heartburn. Medication was effective. Pt appearance is observed disheveled. Room is noted with dirty clothes on the floor and opened food wrappers is noted on the bedside table and on the floor. Last COWS score was 5 and CIWA score was 6 at 1600. Skin is intact, warm and moist to touch. Safety precaution observed. Call light is within reach.
--- NOTE | 2017-09-12 19:15 | NUR ---
Start of shift note Received report from day shift nurse. Pt is a 22 yo male, A+Ox4, presenting to [facility] for Opiate/Benzo withdrawal. Pt noted to be anxious, agitated, restless, and with very messy room with food on dresser and side table and clothes on floor. Pt has HX of Anxiety, Depression, HTN, and Seizure which will be monitored during shift. Pt is on 4 day Subutex and Valium tapers, tolerated well. Respirations even and unlabored. Will continue to monitor.
[2017-09-12 20:04] VITALS: BP 131/86
[2017-09-12] MEDS: diphenhydrAMINE 50 MG CAPSULE PO PRN (23:51)
--- NOTE | 2017-09-12 23:51 | NUR ---
PRN Flexeril and Benadryl Pt c/o muscle pain/spasms and inability to sleep and requested for PRN Flexeril and Benadryl. Medications given and tolerated well. Will Reassess within 1 HR. Will continue to monitor.
[2017-09-13 00:21] VITALS: BP 132/79
--- NOTE | 2017-09-13 00:50 | NUR ---
PRN Flexeril and Benadryl Reassessment Medications effective. Pt expresses reduction in muscle pain/spasms. Pt is resting well in bed. No s/s of ASE noted at this time. Respirations even and unlabored. Will continue to monitor.
[2017-09-13 04:06] VITALS: BP 129/84
--- NOTE | 2017-09-13 06:59 | NUR ---
End of shift note Pt was continuously noted with anxiety, agitation, restlessness, and very messy room with food on dresser and side table and clothes on floor. Pt was out of room frequently to go smoke on smoking patio, to get food from kitchen, and to interact with other patients in recreational room. Pt was given PRN Flexeril and Benadryl @2351 for muscle pain/spasms and inability to sleep. Pt slept for a total of 5 HRS. Last COWS: 10 and Last CIWA: 9 @0400. V/S were WNL during shift. Respirations even and unlabored. Will endorse to day shift nurse.
--- NOTE | 2017-09-13 07:50 | NUR ---
START OF SHIFT NOTE Received report from night nurse, patient admitted for Benzo and Opioid withdrawal. Patient continues on Valium/Subutex taper. Per endorsement pt was given PRN Flexeril/Benadryl noted to be effective, last CIWA-7, COWS-8, slept for 4 hours. Received patient in his room sleeping responsive to verbal and tactile stimuli. Breathing normal no SOB noted. skin intact warm and dry to touch. Safety measures in place. Will cont with plan of care.
[2017-09-13 08:07] VITALS: BP 103/64
[2017-09-13] MEDS: MULTIVITAMINS,THERAPEUTIC TABLET PO SCH (08:46)
[2017-09-13] MEDS: DIAZEPAM 5 MG TABLET PO SCH ×2 (08:46→20:52)
[2017-09-13] MEDS: NICOTINE 14 MG/24HR PATCH TD SCH (08:49)
[2017-09-13] MEDS: IBUPROFEN 400 MG TABLET PO PRN (08:55)
[2017-09-13] MEDS: CYCLOBENZAPRINE HCL 10 MG TABLET PO PRN ×2 (08:55→20:51)
--- NOTE | 2017-09-13 08:55 | NUR ---
PRN FLEXERIL/MOTRIN Patient c/o of muscle spasms and body aches5/10, PRN Flexeril 10mg PO, Motrin 400mg PO given as ordered. Will cont to monitor and reassess.
[2017-09-13] MEDS: CLONIDINE HCL 0.3 MG TABLET PO SCH ×3 (08:57→20:51)
[2017-09-13] MEDS ORDERED: BUPRENORPHINE HCL 2 MG TAB.SUBL SL SCH (09:00)
--- NOTE | 2017-09-13 09:55 | NUR ---
FLEXERIL/MOTRIN REASSESSMENT Per pt medications were effective body aches lower to 2/10, muscle spasms decreased.
[2017-09-13 12:00] VITALS: BP 125/63
--- NOTE | 2017-09-13 12:00 | NUR ---
BEHAVIOR NOTE Patient continues to hoarder [employer] T-shirts, pants, socks, slippers. Patient admits to stock piling clothing because he is homeless. Patient has concerns about not having enough items when he discharge. Case management notified patient's concerns.
[2017-09-13] MEDS ORDERED: AMITRIPTYLINE HCL 50 MG TABLET PO PRN (12:15)
[2017-09-13 16:00] VITALS: BP 130/76
[2017-09-13] MEDS: IBUPROFEN 600 MG TABLET PO PRN (18:37)
--- NOTE | 2017-09-13 18:37 | NUR ---
PRN MOTRIN Patient c/o of body aches 12/20. PRN Motrin 600mg PO given as ordered. Will endorse to night nurse to reassess the pt.
--- NOTE | 2017-09-13 19:01 | NUR ---
END OF SHIFT NOTE Patient presented with anxiety, agitation, body aches, muscle spasms. Patient received PRN Flexeril, Motrin noted to be effective. Patient continues on Subutex/Valium taper tolerating well. Vital signs WNL. Patient was seen by MD with new order of PRN Motrin 400mg changed to 600mg PO. Patient consumed 100% to 50% of his meals. Patient attended groups and activities. Safety measures in place. Patient endorsed to night nurse in stable condition.
--- NOTE | 2017-09-13 19:37 | NUR ---
EDVIN EARLY REASSESSMENT Pt reports pain 12/20, complains of generalized body aches, back pain and toothache on right side of mouth. Pt requests Flexeril for his pain. Safety measures in place. Call light within reach. Will continue to monitor. Addendum: 09/13/17 at 2108 by SARABJIT GOULD RN START OF SHIFT AT 1930
[2017-09-13 20:00] VITALS: BP 133/74
--- NOTE | 2017-09-13 20:51 | NUR ---
PRN FLEXERIL AND ELAVIL ADMINISTRATION Pt reports muscle spasms in back 10 and requests sleep aid. Safety measures in place. Call light within reach. Will continue to monitor.
--- NOTE | 2017-09-13 21:06 | NUR ---
START OF SHIFT Pt is a 22 y/o male admitted on 09/08/17 for benzo, opiate and adderall withdrawal. Pt is on a 4 day Subutex and 4 day Valium taper, last dose of Subutex was this morning and last dose of Valium due tonight. Pt tolerating taper well. Per day shift nurse, PRN Motrin x 2 and Flexeril administered, Motrin to be reassessed, last COWS 9 and CIWA 8. Upon assessment pt presents with anxiety, restlessness, sweats, hot flashes, agitation, tremors, sweats, agitation, flushed skin, difficulty concentrating, flat affect, difficulty sleeping, back ache, generalized body aches, toothache in right side of mouth, increased HR at rest, dysphoria and anhedonia. Pt appears older than stated age, has slumped posture, uncombed hair and room is unkempt. Pt has fan in room d/t sweats. Medications due. Safety measures in place. Call light within reach. Will continue to monitor.
--- NOTE | 2017-09-13 21:51 | NUR ---
PRN FLEXERIL AND ELAVIL REASSESSMENT Pt reports back pain has improved to tolerable level. Pt remains awake, encouraged pt to lay in bed if he wants to sleep. Pt walking around hallways. Safety measures in place. Call light within reach. Will continue to monitor.
[2017-09-14] VITALS: BP 124/71
[2017-09-14] MEDS: IBUPROFEN 600 MG TABLET PO PRN ×2 (00:41→08:46)
[2017-09-14] MEDS: MAG HYDROX/AL HYDROX/SIMETH 30 ML LIQUID UDC PO PRN (00:41)
--- NOTE | 2017-09-14 00:41 | NUR ---
PRN MAALOX AND MOTRIN ADMINISTRATION Pt reports heartburn and complains of toothache 6/10 described as throbbing. Safety measures in place. Call light within reach. Will continue to monitor.
--- NOTE | 2017-09-14 01:41 | NUR ---
PRN MAALOX AND MOTRIN REASSESSMENT Pt laying in bed with eyes closed, medications noted effective. Safety measures in place. Call light within reach. Will continue to monitor.
--- NOTE | 2017-09-14 04:00 | NUR ---
COWS/CIWA DEFERRED AND VITALS REFUSED Pt laying in bed with eyes closed, COWS/CIWA deferred, to be assessed when pt is awake per orders. Vitals refused. Respirations even and unlabored. Safety measures in place. Call light within reach. Will continue to monitor.
--- NOTE | 2017-09-14 07:06 | NUR ---
END OF SHIFT Pt is a 22 y/o male admitted on 09/08/17 for benzo, opiate and adderall withdrawal. Pt finished a 4 day Subutex and 4 day Valium taper, last doses yesterday, tolerated well. Upon assessment pt presented with anxiety, restlessness, sweats, hot flashes, agitation, tremors, sweats, flushed skin, difficulty concentrating, flat affect, difficulty falling asleep, back ache, generalized body aches, toothache in right side of mouth, increased HR at rest, dysphoria and anhedonia. Pt appears older than stated age, had slumped posture, uncombed hair and room was unkempt. Pt has fan in room d/t sweats. Pt became tearful during shift, pt stated, I want to talk to the therapist tomorrowIm feeling emotional because of my relapse. Pt requested for new orders to have Orajel for his toothache and a lidocaine patch for his back pains tomorrow. Scheduled medications and PRN Flexeril, Elavil, Maalox and Motrin administered, effective in S/S of withdrawal AEB COWS 15 CIWA 16 lowered to COWS 10 CIWA 10 during shift. Pt slept 6 hours. Intake 1710 ml, void x 2, stool x 1. Safety measures in place. Call light within reach. Pts needs have been met. Endorsed to day shift nurse.
--- NOTE | 2017-09-14 07:39 | NUR ---
START OF SHIFT NOTE Received report from night nurse, patient admitted for Benzo and Opioid withdrawal. Patient continues on Valium/Subutex taper. Per endorsement pt was given PRN Flexeril/Elavil/Maalox,Motrin noted to be effective, last CIWA-10 COWS-10, slept for 6 hours. Received patient in his room sleeping responsive to verbal and tactile stimuli. Breathing normal no SOB noted. skin intact warm and dry to touch. Safety measures in place. Will cont with plan of care.
[2017-09-14 08:00] VITALS: BP 121/70
[2017-09-14] MEDS: MULTIVITAMINS,THERAPEUTIC TABLET PO SCH (08:46)
[2017-09-14] MEDS: CYCLOBENZAPRINE HCL 10 MG TABLET PO PRN (08:46)
--- NOTE | 2017-09-14 08:46 | NUR ---
PRN FLEXERIL/MOTRIN Patient c/o of muscle spasms and body aches 5/10, PRN Flexeril 10mg PO, Motrin 600mg PO given as ordered. Will cont to monitor and reassess.
[2017-09-14 08:48] VITALS: BP 121/70
[2017-09-14] MEDS: CLONIDINE HCL 0.3 MG TABLET PO SCH (08:48)
[2017-09-14] MEDS: NICOTINE 14 MG/24HR PATCH TD SCH (08:48)
--- NOTE | 2017-09-14 09:46 | NUR ---
FLEXERIL/MOTRIN REASSESSMENT Per pt medications were effective body aches lower to 2/10, muscle spasms decreased.
[2017-09-14] MEDS: ACETAMINOPHEN 325 MG TABLET PO PRN (10:20)
--- NOTE | 2017-09-14 10:20 | NUR ---
PRN TYLENOL Patient c/o of tooth ache 11/19. PRN Tylenol 650mg PO given ordered. Will cont to monitor and reassess.
--- NOTE | 2017-09-14 10:50 | NUR ---
AMA NOTE Patient left against medical advice, patient refused to comply with treatment plan. Patient was educated about the risk and consequences of leaving AMA, patient verbalized understanding but was adamant about leaving. Multiple staff member including the doctor, and nurses attempted to reason with the patient without any success. Vital signs WNL. Skin is intact, patient denies any suicidal or homicidal ideations. Patient psychiatrist and MD are aware. Patient was given a list of community resources. AMA forms explained and signed. All belongings returned to patient. Patient left facility AMA on 09/14/2017 at 1050.
== END 2017-09-14 10:49 | disposition left against medical advice (07) | DRG 894 ==
LOC: SRC 18:42
PROVIDERS: ADMIT Internal Medicine; ATTEND Internal Medicine
PROC: HZ2ZZZZ Detoxification Services for Substance Abuse Treatment (ICD-10-PCS; principal; 2017-09-08)
PROC: HZ41ZZZ Group Counseling for Substance Abuse Treatment, Behavioral (ICD-10-PCS; 2017-09-09)
PROC: HZ31ZZZ Individual Counseling for Substance Abuse Treatment, Behavioral (ICD-10-PCS; 2017-09-10)
DX: F11.23 Opioid dependence with withdrawal (principal); F32.9 Major depressive disorder, single episode, unspecified; F41.9 Anxiety disorder, unspecified; G47.00 Insomnia, unspecified; F90.9 Attention-deficit hyperactivity disorder, unspecified type; Z59.0 Homelessness; I10 Essential (primary) hypertension; K08.89 Other specified disorders of teeth and supporting structures; F13.230 Sedative, hypnotic or anxiolytic dependence with withdrawal, uncomplicated
CPT/HCPCS: 36415; 70030-TC; 80307; 80346; 80349; 83690; 83735; 84443; 85025; 86580; 86592; 86705; 86803; 87340; 87806; G0480; J2405; Q0162; Q0163